=== PATIENT | female | born 1960 | race Caucasian/White ===

== ENCOUNTER 2020-01-09 15:50 | Emergency (ER) | payer OTHER ==
[~2020-01-09] VITALS: Ht 152.4 cm; Wt 69.5 kg
[~2020-01-09 15:50] MED LIST: AMOXICILLIN875 MG PO; BAYER CHEWABLE81 MG PO; CALCIUM 600 +1 EAC3 PO; GLUCOPHAGE1000 MG PO; HUMULIN N100 U/ML SC; HYDROCODONE-APA1 TAB PO; TOPROL XL25 MG PO; ZOCOR10 MG PO
[2020-01-09 15:54] VITALS: Ht 152.4 cm; Wt 69.5 kg
[2020-01-09] MEDS ORDERED: IBUPROFEN800 MG PO (17:25)
[2020-01-09] MEDS ORDERED: ACETAMINOPHEN500 M1 PO (17:25)
[2020-01-09 17:49] VITALS: BP 158/72
== END 2020-01-09 17:49 | disposition home or self-care (01) ==
LOC: D.ER 15:50
DX: M79.18 Myalgia, other site (principal); W01.10XA Fall on same level from slipping, tripping and stumbling with subsequent striking against unspecified object, initial encounter; Y93.9 Activity, unspecified; Y92.9 Unspecified place or not applicable; E11.9 Type 2 diabetes mellitus without complications; I10 Essential (primary) hypertension; E07.9 Disorder of thyroid, unspecified; Z79.84 Long term (current) use of oral hypoglycemic drugs; R51 Headache